=== PATIENT | female | born 1955 | race Caucasian/White ===

== ENCOUNTER → 2019-01-22 | Emergency (ER) | payer MEDICARE, OTHER ==
[~2019-01-22] VITALS: Ht 175.3 cm; Wt 82.5 kg
[~2019-01-22] MED LIST: ASPIR-LOW81 MG PO; ATORVASTATIN CA40 MG PO; DOXAZOSIN MESYLA4 MG PO; GLUCOPHAGE XR750 MG PO; HUMALOG100 UNIT/2 SUB-Q; METOPROLOL SUC100 MG PO; MOTION RELIEF25 MG PO; SPIRONOLACTONE25 MG PO; TORSEMIDE20 MG PO; TOUJEO MAX300 UNIT/1 SQ; VISTARIL25 MG PO
== END ==
LOC: ED 06:27
DX: R42 Dizziness and giddiness (principal); E11.9 Type 2 diabetes mellitus without complications; I12.9 Hypertensive chronic kidney disease with stage 1 through stage 4 chronic kidney disease, or unspecified chronic kidney disease; N18.3 Chronic kidney disease, stage 3 (moderate); Z90.710 Acquired absence of both cervix and uterus; Z79.4 Long term (current) use of insulin
CPT/HCPCS: 80053; 81001; 83735; 85025; 96374; 99284-25; J2060

== ENCOUNTER 2021-07-14 21:05 | Emergency (ER) | payer OTHER, MEDICARE ==
[~2021-07-14] VITALS: Ht 175.3 cm; Wt 76.6 kg
[~2021-07-14 21:05] MED LIST changes: +ALLOPURINOL100 MG PO; +LOSARTAN POTAS100 MG PO; +MAGNESIUM30 MG PO
[2021-07-14] MEDS ORDERED: LIPITOR20 MG PO (21:22)
[2021-07-14] MEDS ORDERED: TORSEMIDE20 MG PO (21:23)
[2021-07-14] MEDS ORDERED: RENVELA800 MG PO (21:25)
[2021-07-14] MEDS ORDERED: POTASSIUM CHLO20 ME1 PO (21:25)
[2021-07-14] MEDS ORDERED: HYDROCODON-ACE1 EA10 PO (22:31)
== END 2021-07-14 23:05 | disposition home or self-care (01) ==
LOC: ED 21:05
DX: S42.214A Unspecified nondisplaced fracture of surgical neck of right humerus, initial encounter for closed fracture (principal); W01.10XA Fall on same level from slipping, tripping and stumbling with subsequent striking against unspecified object, initial encounter; D64.9 Anemia, unspecified; N18.30 Chronic kidney disease, stage 3 unspecified; E11.22 Type 2 diabetes mellitus with diabetic chronic kidney disease; I12.9 Hypertensive chronic kidney disease with stage 1 through stage 4 chronic kidney disease, or unspecified chronic kidney disease; Z79.4 Long term (current) use of insulin; Z79.899 Other long term (current) drug therapy; Z79.82 Long term (current) use of aspirin
CPT/HCPCS: 73030; 73060; 99283-25

== ENCOUNTER 2021-09-15 17:11 | Emergency (ER) | payer MEDICARE, OTHER ==
[~2021-09-15] VITALS: Ht 175.3 cm; Wt 76.2 kg
[~2021-09-15 17:11] MED LIST changes: +HYDROCODON-ACE1 EA10 PO; +LIPITOR20 MG PO; +POTASSIUM CHLO20 ME1 PO; +RENVELA800 MG PO
== END 2021-09-15 20:29 | disposition home or self-care (01) ==
LOC: ED 17:11
DX: R53.1 Weakness (principal); I12.9 Hypertensive chronic kidney disease with stage 1 through stage 4 chronic kidney disease, or unspecified chronic kidney disease; E11.22 Type 2 diabetes mellitus with diabetic chronic kidney disease; N18.30 Chronic kidney disease, stage 3 unspecified; Z79.82 Long term (current) use of aspirin; Z79.4 Long term (current) use of insulin; Z79.899 Other long term (current) drug therapy
CPT/HCPCS: 36415; 70450; 80053; 81001; 85025; 96374; 99285-25; J2405; J7030

== ENCOUNTER 2022-04-15 17:22 | Emergency (ER) | payer MEDICARE, OTHER ==
[~2022-04-15] VITALS: Ht 175.3 cm; Wt 64.3 kg
--- OUTSIDE RECORDS SUMMARY | 2022-04-15 17:24 | XMS ---
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 Soo has no Care Guidelines for this patient. Saeed VISIT COUNT (12 MO.) 4 [facility] 3 [facility] TOTAL 7 NOTE: Visits indicate total known visits. ED/C VISIT TRACKING (12 MO.) 04/15/2022 17:23 [facility] [place] TYPE: Emergency COMPLAINT: - DI[facility]INESS [facility] DIAGNOSES: - Abnormal weight loss - Adult failure to thrive - End stage renal disease - Dysuria 01[facility]21[facility]2022 19[facility] DIAGNOSES: - Nausea - Altered Mental Status 09[facility]19[facility]2021 [facility] DIAGNOSES: - Weakness - Hallucinations, unspecified - Altered Mental Status 09/17/2021 [facility] DIAGNOSES: - Procedure and treatment not carried out due to patient leaving prior to being seen by health care provider - Altered Mental Status - Weakness 09/15/2021 17:12 [facility] [place] TYPE: Emergency COMPLAINT: - STROKE SYMPTOMS DIAGNOSES: - Hypertensive chronic kidney disease with stage 1 through stage 4 chronic kidney disease, or unspecified chronic kidney disease - Type 2 diabetes mellitus with diabetic chronic kidney disease - Chronic kidney disease, stage 3 unspecified - Weakness - intermediate (current) use of insulin - Other long term care phlebotomist (current) drug therapy - emt intermediate (current) use of aspirin 07/14/2021 21:06 [facility] [place] TYPE: Emergency COMPLAINT: - FALL, R ARM INJURY DIAGNOSES: - Hypertensive chronic kidney disease with stage 1 through stage 4 chronic kidney disease, or unspecified chronic kidney disease - Other long term care phlebotomist (current) drug therapy - Anemia, unspecified - intermediate (current) use of insulin - Chronic kidney disease, stage 3 unspecified - emt intermediate (current) use of aspirin - Type 2 diabetes mellitus with diabetic chronic kidney disease - Unspecified nondisplaced fracture of surgical neck of right humerus, initial encounter for closed fracture - Fall on same level from slipping, tripping and stumbling with subsequent striking against unspecified object, initial encounter INPATIENT VISIT TRACKING (12 MO.) [facility] DIAGNOSES: - Abnormal weight loss - Disorder of mineral metabolism, unspecified - Disorientation, unspecified - End stage renal disease - Adult failure to thrive - Polyp of colon - Chronic kidney disease, stage 5 - Anemia in chronic kidney disease - Essential (primary) hypertension - Chronic kidney disease, unspecified - Personal history of transient ischemic attack (TIA), and cerebral infarction without residual deficits - Disorder of bone, unspecified - Other specified personal risk factors, not elsewhere classified - Nausea with vomiting, unspecified [email or web address]
[2022-04-15] MEDS ORDERED: MECLIZINE HCL25 MG PO (18:41)
[2022-04-15] MEDS ORDERED: ONDANSETRON ODT4 MG PO (18:41)
--- NOTE | 2022-04-15 20:30 | EKG ---
[facility] [address] [facility] [place] [address] Signed Normal sinus rhythm Minimal voltage criteria for LVH, may be normal variant ( [place] product ) Borderline ECG No previous ECGs available Confirmed by LALITHA MCKEON MD ([id number]) on 04/15/2022 8:30:02 PM Electronically Signed By: LALITHA MCKEON MD 04/15/22 2030 PATIENT NAME: RAFAEL CUNHA Electrocardiogram DATE OF : 51 PHYSICIAN: LALITHA MCKEON MD REPORT #: [id number] REPORT IS CONFIDENTIAL AND NOT TO BE RELEASED WITHOUT AUTHORIZATION
[2022-04-15] MEDS ORDERED: DOXAZOSIN MESYLA2 MG PO (22:20)
[2022-04-15] MEDS ORDERED: PROSOL2000 ML IV (22:20)
[2022-04-15] MEDS ORDERED: MIRTAZAPINE7.5 MG PO (22:21)
[2022-04-15] MEDS ORDERED: GABAPENTIN100 MG PO (22:21)
[2022-04-15] MEDS ORDERED: TRAZODONE HCL50 MG PO (22:22)
[2022-04-15] MEDS ORDERED: AMLODIPINE BESY10 MG PO (22:22)
== END 2022-04-15 19:52 | disposition home or self-care (01) ==
LOC: ED 17:22
DX: R42 Dizziness and giddiness (principal); I12.0 Hypertensive chronic kidney disease with stage 5 chronic kidney disease or end stage renal disease; E11.22 Type 2 diabetes mellitus with diabetic chronic kidney disease; N18.6 End stage renal disease; D64.9 Anemia, unspecified; Z79.899 Other long term (current) drug therapy; Z79.4 Long term (current) use of insulin; Z79.82 Long term (current) use of aspirin; Z99.2 Dependence on renal dialysis
CPT/HCPCS: 36415; 70450; 71045; 80053; 83690; 85025; 96374; 96375; 99285-25; A9270; J1200; J2550; J2765; J7040

== ENCOUNTER 2024-08-23 08:38 | Emergency (ER) | payer MEDICARE, OTHER ==
[~2024-08-23] VITALS: Ht 175.3 cm; Wt 74.8 kg
[~2024-08-23 08:38] MED LIST changes: +AMLODIPINE BESYL5 MG PO; -ASPIR-LOW81 MG PO; +CHOLESTYRAMINE P4 GM PO; +DOXAZOSIN MESYLA2 MG PO; +GABAPENTIN100 MG PO; -LIPITOR20 MG PO; +LIPITOR40 MG PO; +LO-DOSE ASPIRIN81 MG PO; +MECLIZINE HCL25 MG PO; +MIRTAZAPINE15 MG PO; +MIRTAZAPINE7.5 MG PO; +ONDANSETRON ODT4 MG PO; +PROSOL2000 ML IV; +RENAPLEX TABLE1 EACH PO; +TRAZODONE HCL50 MG PO; +VANCOMYCIN HCL125 MG PO; +WARFARIN SODIUM5 MG PO
[2024-08-23] MEDS ORDERED: NITROGLYCERIN PACKET TOP ONE (09:00)
[2024-08-23] MEDS ORDERED: ASPIRIN 325 MG TAB PO ONE (09:00)
[2024-08-23 09:15] LABS: BASOPHILS 0.5 % (0-2); EOSINOPHILS 1.8 % (0-6); HEMATOCRIT 27.7 % (35.0-50.0); HEMOGLOBIN 9.4 g/dL (12.0-18.0); LYMPHOCYTES 11.9 % (24-44); MCH 29.5 (27-36); MCHC 33.8 g/dl (30-36); MCV 87.3 fl (81-99); MONOCYTES 6.5 % (0-12); NEUTROPHILS 79.3 % (39-80); PLATELET COUNT 203 K/uL (140-440); RBC 3.18 M/ul (4.3-5.7); RDW 16.2 (10.5-15.0)
[2024-08-23] MEDS ORDERED: NITROGLYCERIN 0.4 MG SUBL SL PRN (09:30)
[2024-08-23 09:39] LABS: ALBUMIN 3.2 g/dL (3.4-5.0); ALBUMIN/GLOBULIN RATIO 0.91 (1.1-2.4); BILIRUBIN, TOTAL 0.6 ng/dL (0.2-1.0); BUN/CREATININE RATIO 8.07 (6.0-28.6); CALCIUM 9.9 mg/dL (8.5-10.1); CREATININE, SERUM 8.54 mg/dL (0.55-1.02); MAGNESIUM 4.4 mg/dL (1.8-2.4); PROTEIN, TOTAL 6.7 g/dL (6.4-8.2)
[2024-08-23] MEDS ORDERED: ondansetron HCL 4 MG/2 ML VIAL IV ONE (09:45)
[2024-08-23] MEDS ORDERED: AVAPRO150 MG PO (09:49)
[2024-08-23] MEDS ORDERED: FENOFIBRATE160 MG PO (09:49)
[2024-08-23] MEDS ORDERED: ACETAMINOPHEN500 MG PO (09:51)
[2024-08-23] MEDS ORDERED: NIACIN ER500 MG PO (09:52)
[2024-08-23] MEDS ORDERED: BUPROPION XL300 MG PO (09:52)
[2024-08-23] MEDS ORDERED: OSTEO BI-FLEX1 EAC4 PO (09:53)
[2024-08-23] MEDS ORDERED: EFFEXOR XR75 MG PO (09:53)
[2024-08-23] MEDS ORDERED: DAILY VALUE1 EACH PO (09:54)
[2024-08-23] MEDS ORDERED: fentaNYL citrate 100 MCG/2 ML VIAL IV PRN (10:15)
[2024-08-23] MEDS ORDERED: HYDROmorphone HCL 1 MG/ML SYR IV PRN (12:45)
[2024-08-23 15:00] VITALS: BP 143/63
[2024-08-23] MEDS ORDERED: AMOX TR-K CLV1 EAC1 PO (15:00)
[2024-08-23] MEDS ORDERED: ZITHROMAX250 MG PO (15:00)
--- NOTE | 2024-08-24 15:02 | EKG ---
[facility] [address] [place] [address] Signed Junctional rhythm Minimal voltage criteria for LVH, may be normal variant ( Flex product ) T wave abnormality, consider anterior ischemia Prolonged QT Abnormal ECG When compared with ECG of 15-APR-2022 18:21, Junctional rhythm has replaced Sinus rhythm Vent. rate has decreased BY 30 BPM T wave inversion now evident in Anterior leads Confirmed by Avi Smith MD ([id number]) on 08/24/2024 3:02:43 PM Electronically Signed By: AVI SMITH MD 08/24/24 1502 PATIENT NAME: RAFAEL CUNHA Electrocardiogram DATE OF : 51 PHYSICIAN: AVI SMITH MD REPORT #: [id number] REPORT IS CONFIDENTIAL AND NOT TO BE RELEASED WITHOUT AUTHORIZATION
--- NOTE | 2024-08-24 15:03 | EKG ---
[facility] [address] [facility] [place] [address] Signed Sinus bradycardia Minimal voltage criteria for LVH, may be normal variant ( Flex product ) ST \T\ T wave abnormality, consider anterior ischemia Abnormal ECG When compared with ECG of 23-AUG-2024 08:42, (Unconfirmed) Sinus rhythm has replaced Junctional rhythm ST now depressed in Anterior leads Confirmed by Avi Smith MD ([id number]) on 08/24/2024 3:03:19 PM Electronically Signed By: AVI SMITH MD 08/24/24 1503 PATIENT NAME: RAFAEL CUNHA Electrocardiogram DATE OF : 51 PHYSICIAN: AVI SMITH MD REPORT #: [id number] REPORT IS CONFIDENTIAL AND NOT TO BE RELEASED WITHOUT AUTHORIZATION
--- NOTE | 2024-08-24 15:04 | EKG ---
[facility] [address] [place] [address] Signed Sinus rhythm with 1st degree AV block Minimal voltage criteria for LVH, may be normal variant ( Flex product ) T wave abnormality, consider anterior ischemia Abnormal ECG When compared with ECG of 23-AUG-2024 09:00, (Unconfirmed) VT interval has increased Confirmed by Avi Smith MD ([id number]) on 08/24/2024 3:04:54 PM Electronically Signed By: VAI SMITH MD 08/24/24 1504 PATIENT NAME: RAFAEL CUNHA Electrocardiogram DATE OF : 51 PHYSICIAN: AVI SMITH MD REPORT #: [id number] REPORT IS CONFIDENTIAL AND NOT TO BE RELEASED WITHOUT AUTHORIZATION
== END 2024-08-23 15:03 | disposition home or self-care (01) ==
LOC: ED 08:38
PROVIDERS: Emergency Medicine
DX: R07.9 Chest pain, unspecified (principal); D64.9 Anemia, unspecified; J69.0 Pneumonitis due to inhalation of food and vomit; I12.0 Hypertensive chronic kidney disease with stage 5 chronic kidney disease or end stage renal disease; E11.22 Type 2 diabetes mellitus with diabetic chronic kidney disease; N18.6 End stage renal disease; R74.8 Abnormal levels of other serum enzymes; E83.41 Hypermagnesemia; R91.1 Solitary pulmonary nodule; E78.5 Hyperlipidemia, unspecified; Z88.5 Allergy status to narcotic agent; Z88.1 Allergy status to other antibiotic agents; Z79.899 Other long term (current) drug therapy
CPT/HCPCS: 36415; 71046; 71260; 80053; 83690; 83735; 83880; 84484; 85025; 93005; 93010; 99285-25; J2405; J3010; Q9967

== ENCOUNTER 2024-10-31 15:19 | Emergency (ER) | payer OTHER, MEDICARE ==
[~2024-10-31] VITALS: Ht 175.3 cm; Wt 73.0 kg
--- OUTSIDE RECORDS SUMMARY | ~2024-10-31 | XMS | Continuity of Care Document ---
Demographics + + + | Address | [address] | | | [place] [address] | + + + | Preferred Language | Unknown | + + + | Marital Status | Unknown | + + + | Hoahaoism Affiliation | Unknown | + + + | Race | White | + + + | Ethnic Group | Not or | + + + Author + + + | Author | [facility] | + + + | Organization | [facility] | + + + | Address | [address] | | | [place] [address] | + + + | Phone | | + + + Care Team Providers + + + + | Care Custom Shop Worker Name | Role | Phone | + + + + Unavailable | Unavailable | + + + + Allergies No information. Encounters No information. Functional Status No information. Immunizations No information. Medications No information. Problems + + + + | date | description | facility | + + + + | 2024-09-09 14:00:28 | Other pericardial effusion | [facility] | | | (noninflammatory) | | + + + + Procedures No information. Results/Labs No information. Social History +--------+ + + | date | description | facility | +--------+ + + Vital Signs No information."
[~2024-10-31 15:19] MED LIST changes: +ACETAMINOPHEN500 MG PO; +AMOX TR-K CLV1 EAC1 PO; +AVAPRO150 MG PO; +BUPROPION XL300 MG PO; +DAILY VALUE1 EACH PO; +EFFEXOR XR75 MG PO; +FENOFIBRATE160 MG PO; +FERROUS SULFAT325 M2 PO; +FOSRENOL1000 MG PO; +INSULIN LI100 UNIT/2 SUB-Q; +MAGNESIUM OXID400 M1 PO; +MELATONIN3 MG PO; +NIACIN ER500 MG PO; +OSTEO BI-FLEX1 EAC4 PO; +PREDNISONE5 MG PO; +TORSEMIDE100 MG PO; +VITAMIN D350 MC3 PO; +ZITHROMAX250 MG PO
[2024-10-31 16:45] LABS: BASOPHILS 0.5 % (0-2); EOSINOPHILS 1.2 % (0-6); HEMATOCRIT 36.4 % (35.0-50.0); HEMOGLOBIN 12.3 g/dL (12.0-18.0); LYMPHOCYTES 13.2 % (24-44); MCH 30.1 (27-36); MCHC 33.7 g/dl (30-36); MCV 89.3 fl (81-99); MONOCYTES 6.9 % (0-12); NEUTROPHILS 78.2 % (39-80); PLATELET COUNT 270 K/uL (140-440); RBC 4.08 M/ul (4.3-5.7)
[2024-10-31 16:49] LABS: INR 1.89 (0.80-1.30); PROTIME 20.6 Sec (11.2-14.2)
[2024-10-31 16:54] LABS: ALBUMIN 3.3 g/dL (3.4-5.0); ALBUMIN/GLOBULIN RATIO 0.97 (1.1-2.4); ANION GAP 14.7 (7-21); BILIRUBIN, TOTAL 0.5 mg/dL (0.2-1.0); BUN/CREATININE RATIO 9.35 (6.0-28.6); CALCIUM 9.7 mg/dL (8.5-10.1); CREATININE, SERUM 7.27 mg/dL (0.55-1.02); POTASSIUM 4.7 mmol/L (3.5-5.1); PROTEIN, TOTAL 6.7 g/dL (6.4-8.2)
[2024-10-31] MEDS ORDERED: HYDROCODON-ACE1 EA10 PO (17:57)
[2024-10-31 18:32] VITALS: BP 194/86
== END 2024-10-31 18:32 | disposition home or self-care (01) ==
LOC: ED 15:19
PROVIDERS: Emergency Medicine
DX: S22.41XA Multiple fractures of ribs, right side, initial encounter for closed fracture (principal); I10 Essential (primary) hypertension; E11.9 Type 2 diabetes mellitus without complications; W01.0XXA Fall on same level from slipping, tripping and stumbling without subsequent striking against object, initial encounter; Z79.01 Long term (current) use of anticoagulants; Z99.2 Dependence on renal dialysis; Z79.4 Long term (current) use of insulin; Z88.0 Allergy status to penicillin; Z88.1 Allergy status to other antibiotic agents
CPT/HCPCS: 36415; 70450; 71250; 72125; 74176; 80053; 85025; 85610; 99284-25; G0480